=== PATIENT | male | born 1990 | race Caucasian/White ===

== ENCOUNTER → 2020-08-07 15:12 | Outpatient (BNVA) | payer SELFPAY | PROVIDERS: Visit Provider Physician Assistant ==

== ENCOUNTER 2021-03-20 15:04 | Emergency (ER) | payer OTHER, SELFPAY ==
--- NOTE | ~2021-03-20 | XR_ITS ---
EXAMINATION: XR ANKLE, LEFT XR FOOT, LEFT CLINICAL INFORMATION: Status post twist injury from [employer] COMPARISON: None TECHNIQUE: AP, lateral, and mortise views of the left ankle and AP, lateral, and oblique views of the left foot. FINDINGS: LEFT ANKLE: No fracture. Alignment is anatomic. Ankle mortise is symmetric. Joint spaces are maintained. No ankle joint effusion. Mild soft tissue swelling. Small enthesopathic spur is present at the Achilles tendon insertion on the calcaneus. LEFT FOOT: There is a small avulsion fracture at the lateral margin of the calcaneus at the anterior process as can be seen with avulsion fractures at the dorsal calcaneocuboid ligament or the extensor digitorum longus. Surrounding soft tissues are swollen. No additional avulsion fractures are identified. Alignment in the midfoot appears well-preserved at the tarsometatarsal joints. Bone mineralization is normal. XR/XR ankle LT min 3V IMPRESSION: Avulsion fracture at the lateral margin of the anterior process of the calcaneus, likely due to an avulsion fracture at the origin of the extensor digitorum brevis or the dorsal calcaneocuboid ligament. This can be seen in the setting of a midtarsal sprain mechanism injury. Soft tissue swelling. No additional fractures are identified.
--- NOTE | ~2021-03-20 | XR_ITS ---
EXAMINATION: XR ANKLE, LEFT XR FOOT, LEFT CLINICAL INFORMATION: Status post twist injury from [employer] COMPARISON: None TECHNIQUE: AP, lateral, and mortise views of the left ankle and AP, lateral, and oblique views of the left foot. FINDINGS: LEFT ANKLE: No fracture. Alignment is anatomic. Ankle mortise is symmetric. Joint spaces are maintained. No ankle joint effusion. Mild soft tissue swelling. Small enthesopathic spur is present at the Achilles tendon insertion on the calcaneus. LEFT FOOT: There is a small avulsion fracture at the lateral margin of the calcaneus at the anterior process as can be seen with avulsion fractures at the dorsal calcaneocuboid ligament or the extensor digitorum longus. Surrounding soft tissues are swollen. No additional avulsion fractures are identified. Alignment in the midfoot appears well-preserved at the tarsometatarsal joints. Bone mineralization is normal. XR/XR foot LT min 3V IMPRESSION: Avulsion fracture at the lateral margin of the anterior process of the calcaneus, likely due to an avulsion fracture at the origin of the extensor digitorum brevis or the dorsal calcaneocuboid ligament. This can be seen in the setting of a midtarsal sprain mechanism injury. Soft tissue swelling. No additional fractures are identified.
[2021-03-20 17:18] VITALS: BP 122/64; PULSE 73; RESP 16; TEMP 36.2; O2SAT 99; BMI 33.0
[2021-03-20] MEDS: Ibuprofen 800 MG TABLET PO (17:38)
--- NOTE | 2021-03-20 17:49 | ED.LOWEXIN ---
HPI - Extremity Injury (Lower) General Chief Complaint: Extremity Injury, Lower Stated Complaint: ankle inj Time Seen by Provider: 03/20/21 17:05 Source: patient Mode of arrival: ambulatory Limitations: no limitations History of Present Illness HPI Narrative: 30-year-old male presenting to the ED with complaints of left ankle / foot pain that started prior to arrival after he [place] and his ankle/ foot twisted. He denies head injury or loss of consciousness. Denies any numbness or tingling or any other injuries complaints or concerns at this time. He is able to bear weight although with pain. MD complaint: ankle injury and foot injury Onset (ago): minute(s) ( Prior to arrival) Injury: Left: ankle and foot Type of Injury: other ( twist injury unsure if inversion or eversion) Place: other ( indoor trampoline park) Severity: severe Severity scale (1-10): >10 Relieving factors: nothing Exacerbating factors: weight bearing Context: jumping Associated symptoms: snap/pop sensation, swelling and able to partially bear weight Other symptoms: none Related Data Previous Rx's Medication Instructions Recorded acetaminophen [Tylenol Extra 1,000 mg PO QID PRN #14 tab 03/20/21 Strength] ibuprofen 800 mg PO Q8H PRN #14 tab 03/20/21 oxycodone 5 mg PO BID PRN #14 tab 03/20/21 Allergies Allergy/AdvReac Type Severity Reaction Status Date / Time No Known Allergies Allergy Verified 03/20/21 17:38 [No Known Allergies*] Review of Systems Review of Systems: Constitutional : No changes in activity, No lethargy, No recent prior head injury, No agitation, No increased fussiness ENT/Mouth : No Ear Pain, No Nasal discharge/drainage Eyes: No Eye Pain, No Swelling, No Redness, No Foreign Body, No Vision Changes Cardiovascular : No Chest Pain, No SOB Respiratory : No Cough Gastrointestinal : No Nausea, No Vomiting, No abdominal Pain Genitourinary : No Dysuria, No Urinary Frequency, No Urinary Incontinence, No Urgency, No Flank Pain Musculoskeletal : + joint pain, No neck stiffness, No back pain/injury Skin : No lacerations Neuro : No unsteady gait, No Paresthesias, No Loss of Consciousness, No altered mental status, No Headache Yes all other systems are reviewed and are negative PMFSH Past Medical History Attestation statement: The following information was validated with the patient. Medical History No known health problems Social History Social History Advance Directives: No Advance Directives Information Provided: No Physical Exam Vital Signs: Vital Signs: Last Vital Signs Temp 97.1 F 03/20/21 17:18 Pulse 73 03/20/21 17:18 Resp 16 03/20/21 17:18 BP 122/64 03/20/21 17:18 Pulse Ox 99 03/20/21 17:18 Body Mass Index 33.0 vital signs have been reviewed as normal and appeared to be correct. Blood pressure normal. Heart rate normal. Respiration rate normal. Temperature normal. Oxygen saturation normal. Appearance: Alert. Oriented X3. No acute distress. Head: Normal external exam. Normocephalic. Atraumatic. Eyes: PERRLA. EOMI. Conjunctiva and sclera normal. Eyelids normal. ENT: Pharynx normal. Uvula midline. Moist mucous membranes. Neck: Normal inspection. Neck supple. FROM. CVS: Normal heart rate and rhythm. Heart sound normal. Pulses normal throughout. Respiratory: No respiratory distress. Painless inspiration. Back: Full range of motion noted. No rashes/lesion/induration/fluctuance or signs of infection noted. Skin: Skin warm and dry. Normal skin color. Normal skin turgor. No rashes/lesions/lacerations noted. Extremities: patient with tenderness to palpation to left ankle/foot at the dorsal aspect with moderate soft tissue swelling. No obvious deformity or ligamentous laxity noted on my exam. Reflex intact. Achilles tendon is intact. Negative Poe test. Patient has a limping gait due to pain. Otherwise all other Extremities exhibit normal range of motion and nontender. Neuro: Oriented X 3. No motor deficit. No sensory deficit. Reflexes normal. Normal steady gait. No focal neuro deficits noted. Vascular: + radial pulses/+ 2 distal pedal pulses/+2 dorsalis pedis b/l. Normal cap refill. No cyanosis noted to upper extremity nails and lower extremity toes nails. Course Course Course Narrative: 17:20pm 30-year-old male presenting to the ED with complaints of left ankle / foot pain that started prior to arrival after he was jumping at the [employer] park and his ankle/ foot twisted. Plan:X-ray of left foot / ankle. Provide 800 mg of Motrin then will re-evaluate. Reevaluation(s) Reevaluation #1: patient with left foot fracture I consulted with orthopedic ALEXANDRU Laureano and she recommended an ortho boot as long as the patient can bear weight if he cannot we will place him in crutches along with instructions follow-up in the next 1-2 weeks. Patient works for [employer] therefore will placed on light duty until cleared by Orthopedics. Patient understands agrees with this plan. Time: 18:15 Procedures Orthopedic Splinting/Casting Injury #1: Side: left Lower Extremity Injury Location: foot Lower Extremity Immobilizer: boot orthosis MDM - Extremity Injury (Lower) Medical Records Attestation: I reviewed the patient's medical records. Imaging Data left ankle/foot xray: Attestation: I personally reviewed and interpreted this imaging study as follows: Radiologist's impression: FINDINGS: LEFT ANKLE: No fracture. Alignment is anatomic. Ankle mortise is symmetric. Joint spaces are maintained. No ankle joint effusion. Mild soft tissue swelling. Small enthesopathic spur is present at the Achilles tendon insertion on the calcaneus. LEFT FOOT: There is a small avulsion fracture at the lateral margin of the calcaneus at the anterior process as can be seen with avulsion fractures at the dorsal calcaneocuboid ligament or the extensor digitorum longus. Surrounding soft tissues are swollen. No additional avulsion fractures are identified. Alignment in the midfoot appears well-preserved at the tarsometatarsal joints. Bone mineralization is normal. XR/XR ankle LT min 3V IMPRESSION: Avulsion fracture at the lateral margin of the anterior process of the calcaneus, likely due to an avulsion fracture at the origin of the extensor digitorum brevis or the dorsal calcaneocuboid ligament. This can be seen in the setting of a midtarsal sprain mechanism injury. Soft tissue swelling. No additional fractures are identified. Discharge Plan Discharge Clinical Impression: Foot fracture, left Patient Disposition: Home, Self-Care Instructions: Foot Fracture in Adults (ED) Prescriptions: New ibuprofen 800 mg tablet 800 mg PO Q8H PRN (Reason: pain) Qty: 14 RF: 0 acetaminophen [Tylenol Extra Strength] 500 mg tablet 1,000 mg PO QID PRN (Reason: fever or pain) Qty: 14 RF: 0 oxycodone 5 mg tablet 5 mg PO BID PRN (Reason: pain) Qty: 14 RF: 0 Referrals: Lakeshia Doe MD [Physician] - 04/03/21 ( call tomorrow to make a follow-up appointment within the next week or 2) Stand Alone Forms: Work/School Release Print Language: Malay
== END 2021-03-20 19:06 | disposition home or self-care (01) ==
PROVIDERS: Emergency Provider Emergency Medicine
DX: S92.902A Unspecified fracture of left foot, initial encounter for closed fracture (principal); X50.1XXA Overexertion from prolonged static or awkward postures, initial encounter; Y93.39 Activity, other involving climbing, rappelling and jumping off; Y92.838 Other recreation area as the place of occurrence of the external cause; Y99.9 Unspecified external cause status
CPT/HCPCS: 73610; 73630; 99283; 99284

== ENCOUNTER 2021-03-26 07:44 | Outpatient (REF) | payer OTHER, SELFPAY ==
--- NOTE | ~2021-03-26 | XR_ITS ---
EXAMINATION: XR FOOT, LEFT CLINICAL INFORMATION: Pain. COMPARISON: None TECHNIQUE: AP, lateral, and oblique views of the left foot. FINDINGS: The bones and soft tissues are normal. No fracture. Alignment is anatomic. Joint spaces are maintained. XR/XR foot LT min 3V IMPRESSION: Unremarkable left foot exam.
== END 2021-03-26 07:45 | disposition home or self-care (01) ==
LOC: HO.HOSX 07:44
PROVIDERS: Visit Provider Physician Assistant
DX: S92.002A Unspecified fracture of left calcaneus, initial encounter for closed fracture (principal)
CPT/HCPCS: 73630

== ENCOUNTER 2021-04-16 09:22 | Outpatient (REF) | payer OTHER, SELFPAY ==
--- NOTE | ~2021-04-16 | XR_ITS ---
EXAMINATION: XR FOOT, LEFT CLINICAL INFORMATION: Fracture left calcaneus. COMPARISON: None TECHNIQUE: AP, lateral, and oblique views of the left foot. FINDINGS: There is a small avulsion fracture along the lateral inferior lateral calcaneus seen only one view. No additional bony abnormality seen. There is normal articulation of the intertarsal and tarsometatarsal joints. The ankle mortise and subtalar joints are normal. A moderate-sized retrocalcaneal and a small calcaneal enthesophytes is seen. XR/XR foot LT min 3V IMPRESSION: Small avulsion fracture along the lateral inferior calcaneus. Small retrocalcaneal and calcaneal heel enthesophytes.
== END 2021-04-16 09:23 | disposition home or self-care (01) ==
LOC: HO.XRAY 09:22
PROVIDERS: Visit Provider Physician Assistant
DX: S92.002A Unspecified fracture of left calcaneus, initial encounter for closed fracture (principal)
CPT/HCPCS: 73630

== ENCOUNTER 2023-03-29 07:30 | Emergency (ER) | payer OTHER, SELFPAY ==
--- NOTE | ~2023-03-29 | XR_ITS ---
EXAMINATION: XR LUMBOSACRAL SPINE CLINICAL INFORMATION: Right paraspinal pain. COMPARISON: CT abdomen/pelvis dated 03/10/2015. TECHNIQUE: Three views of the lumbosacral spine. FINDINGS: The lumbar lordosis is maintained. Normal vertebral body alignment. No acute fracture or subluxation. No loss of vertebral body or intervertebral disc height. Unremarkable facets. No lytic or blastic osseous lesion. No abnormal soft tissue calcification. XR/XR lumbar spine 2-3V IMPRESSION: Unremarkable examination.
[2023-03-29 07:33] VITALS: BP 125/87; PULSE 80; RESP 16; TEMP 36.4; O2SAT 97; BMI 33.4
--- NOTE | 2023-03-29 08:17 | ED_ITS ---
HPI - Back Pain/Injury General Chief Complaint: Back Pain/Injury Stated Complaint: back pain , work injury Time Seen by Provider: 03/29/23 07:51 Source: patient and family () Mode of arrival: ambulatory History of Present Illness HPI Narrative: 32-year-old male without significant past medical history presents with significant lower back pain, reports he was injured on 03/22 at work and has continued to work. 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 He denies any bowel or bladder issues but pain is worse with sitting, he is uncomfortable while laying down and sleeping but denies any numbness/tingling to either lower extremity and denies any weakness in either lower extremity. Related Data Previous Rx's Medication Instructions Recorded acetaminophen 500 mg tablet 1,000 mg PO QID PRN fever or pain 03/20/21 (Tylenol Extra Strength) #14 tabs ibuprofen 800 mg tablet 800 mg PO Q8H PRN pain #14 tabs 03/20/21 oxycodone 5 mg tablet 5 mg PO BID PRN pain #14 tabs 03/20/21 cyclobenzaprine 10 mg tablet 10 mg PO BEDTIME PRN muscle spasm 03/29/23 #5 tabs ketorolac 10 mg tablet 10 mg PO Q6H PRN pain 5 days #20 03/29/23 tabs Allergies Allergy/AdvReac Type Severity Reaction Status Date / Time No Known Allergies Allergy Verified 03/29/23 07:32 [No Known Allergies*] Review of Systems Review of Systems: Pertinent positives and negatives as stated in HPI [facility] Past Medical History Medical History No known health problems Surgical History Hx of appendectomy Social History Social History Alcohol intake: never Smoked in Last 30 Days: No Use of substances other than those prescribed or required for medical reasons: No Advance Directives: No Advance Directives Information Provided: No Current occupational status: employed 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 GENERAL: Well developed, well nourished, in no acute distress. HEAD: Normocephalic/atraumatic EYES: PERRLA, EOMI EARS: Ext canals without abnormality LUNGS: Normal breath sounds. No adventitious sounds or accessory muscle use. SpO2<97> CARDIOVASCULAR: Regular rate and rhythm without noted murmurs ABDOMEN: Soft, non-tender, non-distended with bowel sounds. BACK: No midline vertebral tenderness on palpation or step-offs noted, significant tenderness to palpation to right paraspinal at approximate L4 MUSCULOSKELETAL: No tenderness, deformities, or effusions noted on gross inspec tion. EXTREMITIES: No cyanosis, clubbing or edema. SKIN: Inspection of the skin reveals no rashes NEUROLOGIC: Alert and oriented x 4. Strength and sensation to light touch were grossly intact x 4. Medications Administered Discontinued Medications Generic Name Dose Route Start Last Admin Trade Name Freq PRN Reason Stop Dose Admin Acetaminophen 975 mg 03/29/23 08:16 03/29/23 08:45 Acetaminophen 325 Mg Tablet PO 03/29/23 08:17 975 mg ONCE ONE Administration Cyclobenzaprine HCl 10 mg 03/29/23 08:16 03/29/23 08:45 Cyclobenzaprine Hcl 10 Mg Tablet PO 03/29/23 08:17 10 mg ONCE ONE Administration Ketorolac Tromethamine 15 mg 03/29/23 08:16 03/29/23 08:45 Ketorolac Tromethamine 15 Mg/Ml Vial IM 03/29/23 08:17 15 mg ONCE ONE Administration Lidocaine 1 patch 03/29/23 08:16 03/29/23 08:44 Lidocaine 4 % Patch Adh..Patch TRANSDERMA 03/29/23 08:17 1 patch ONCE ONE Administration Protocol Medical Decision Making Medical Decision Making MDM Narrative: 32-year-old male with history and clinical presentation, DDX: Muscle strain, muscle spasm, less likely thought to be fracture/gross herniation. Combination analgesics/anti spasmodic/lidocaine patch, XR lumbar spine. I reviewed imaging studies which are negative for any evidence of acute fracture. Differential Diagnosis Differential Diagnoses: The differential diagnosis associated with the presentation includes Please see the discussion above Admission/Observation Consideration of admission/observation: Escalation of care including admission/observation considered Radiology Impression Radiologist Impression: No fracture, otherwise my interpretation is in agreement with radiology's impression. Discharge Plan Discharge Clinical Impression: Back strain, Muscle spasm Patient Disposition: Home, Self-Care Instructions: Muscle Strain (ED), Muscle Spasm (ED), Back Pain (ED), Lower Back Exercises (ED) Additional Instructions: 1. Tylenol 1000 mg, orally, every 6 hours as needed for pain control. Do not exceed 4000 mg within 24 hours. 2. Lidocaine patch, apply to area of maximal tenderness as directed on the outside packaging. 3. Please report this incident to your employer your as well as following up with [facility]. X-ray negative for any acute fracture or other bony abnormality. Return to the ER for any worsening symptoms. Prescriptions: New ketorolac 10 mg tablet 10 mg PO Q6H PRN (Reason: pain) 5 Days Qty: 20 0RF Rx Instructions: Patient received Toradol here in the emergency room. cyclobenzaprine 10 mg tablet 10 mg PO BEDTIME PRN (Reason: muscle spasm) Qty: 5 0RF No Action ibuprofen 800 mg tablet 800 mg PO Q8H PRN (Reason: pain) Qty: 14 0RF acetaminophen [Tylenol Extra Strength] 500 mg tablet 1,000 mg PO QID PRN (Reason: fever or pain) Qty: 14 0RF oxycodone 5 mg tablet 5 mg PO BID PRN (Reason: pain) Qty: 14 0RF Referrals: [facility] [Provider Group] Stand Alone Forms: Work/School Release
[2023-03-29] MEDS: Lidocaine 4 % Patch ADH..PATCH 1 PATCH TRANSDERMA (08:44)
[2023-03-29] MEDS: Cyclobenzaprine HCl 10 MG TABLET PO (08:45)
[2023-03-29] MEDS: Ketorolac Tromethamine 15 MG/ML VIAL IM (08:45)
[2023-03-29] MEDS: Acetaminophen 325 MG TABLET 975 MG PO (08:45)
--- NOTE | 2023-03-29 08:51 | PC.NURSE ---
pt a&ox3, respirations even and unlabored. pt reports pain 10/10 on lower back that is radiating to the right leg d/t falling out of his work truck. pt reports inability to sit down without extreme pain. no bruising or inflammation noted upon assessment.
== END 2023-03-29 09:23 | disposition home or self-care (01) ==
PROVIDERS: Emergency Provider Student in an Organized Health Care Education/Training Program
DX: S39.012A Strain of muscle, fascia and tendon of lower back, initial encounter (principal); W17.89XA Other fall from one level to another, initial encounter; M62.830 Muscle spasm of back; Y93.79 Activity, other specified sports and athletics; Y92.9 Unspecified place or not applicable; Y99.0 Civilian activity done for income or pay
CPT/HCPCS: 72100; 96372; 99284; J1885

== ENCOUNTER 2024-03-15 18:54 | Emergency (ER) | payer OTHER, SELFPAY ==
--- NOTE | ~2024-03-15 | CT_ITS ---
CT CERVICAL SPINE WITHOUT CONTRAST CLINICAL HISTORY:Neck pain, injury COMPARISON: None TECHNIQUE: Axial CT imaging of the cervical spine was acquired without intravenous contrast. Coronal and sagittal reformats were also reviewed. All CT exams at this location are performed using dose optimization techniques as appropriate to a performed exam including at least one of the following: * Automated exposure control * Adjustment of the mA and/or kV according to patient size (this includes techniques or standardized protocols for targeted exams where dose is matched to indication / reason for exam; i/e/ extremities or head) * Use of iterative reconstructive technique RESULTS: There is no evidence of acute cervical spine fracture. Vertebral body height and alignment is well maintained. No pre- or paravertebral soft tissue abnormality is identified. Disc spaces and facet joints are well maintained. Minimal endplate osteophyte formation is seen from the C4-C7. Limited assessment of the lung apices is unremarkable. CT/CT cervical spine wo IV con IMPRESSION: No evidence of acute cervical spine fracture or traumatic subluxation. Mild degenerative changes as described above.
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
[2024-03-15 19:05] VITALS: BP 135/73; PULSE 85; RESP 16; TEMP 36.7; O2SAT 97; BMI 33.2
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
[2024-03-15] MEDS: Cyclobenzaprine HCl 5 MG TABLET PO (20:30)
[2024-03-15] MEDS: Ketorolac Tromethamine 15 MG/ML VIAL IM (20:31)
[2024-03-15 20:33] VITALS: BP 106/60; PULSE 96; RESP 16; TEMP 36.3; O2SAT 96
[2024-03-15 20:38] VITALS: BP 106/60; PULSE 96; RESP 16; TEMP 36.3; O2SAT 96
== END 2024-03-15 20:38 | disposition home or self-care (01) ==
PROVIDERS: Emergency Provider Internal Medicine
DX: S13.4XXA Sprain of ligaments of cervical spine, initial encounter (principal); S49.92XA Unspecified injury of left shoulder and upper arm, initial encounter; M54.2 Cervicalgia; M25.512 Pain in left shoulder; V43.52XA Car driver injured in collision with other type car in traffic accident, initial encounter; Y93.9 Activity, unspecified; Y92.410 Unspecified street and highway as the place of occurrence of the external cause; Y99.8 Other external cause status
CPT/HCPCS: 72125; 73030; 96372; 99283; 99284; J1885

== ENCOUNTER 2024-08-04 19:29 | Emergency (ER) | payer OTHER, SELFPAY ==
--- NOTE | ~2024-08-04 | XR_ITS ---
EXAMINATION: XR FOOT, RIGHT CLINICAL INFORMATION: pain and swelling after ankle injury COMPARISON: None available. TECHNIQUE: AP, lateral, and oblique views of the right foot. FINDINGS: Small 2 mm un-corticated osseous fragment located lateral to the talar neck. No radiopaque foreign bodies. Joint spaces are preserved. XR/XR foot RT min 3V IMPRESSION: Questionable small avulsion fracture arising from the lateral aspect of the talar neck Electronically signed by: Deni Goff DO 08/04/2024 10:46 PM EST
--- NOTE | ~2024-08-04 | XR_ITS ---
EXAMINATION: XR ANKLE, RIGHT CLINICAL INFORMATION: pain and swelling after inversion COMPARISON: None available. TECHNIQUE: AP, lateral, and mortise views of the right ankle. FINDINGS: No fracture. Alignment is anatomic. No erosions. Joint spaces are maintained. Soft tissues are normal. XR/XR ankle RT min 3V IMPRESSION: Normal right ankle. Electronically signed by: Deni Goff DO 08/04/2024 10:43 PM EST
[2024-08-04 19:30] VITALS: BP 135/63; PULSE 76; RESP 18; TEMP 37; O2SAT 97; BMI 33.5
--- NOTE | 2024-08-04 19:30 | ED.GENADULT ---
HPI - General Adult General Chief complaint: Extremity Injury, Lower Stated complaint: RT foot injury- work related Time Seen by Provider: 08/04/24 21:13 Source: patient Limitations: no limitations History of Present Illness ED Provider: Denise Robbins PA-C HPI narrative: 33-year-old male presents with right foot and ankle pain. Patient states he was at work, he missed a step, he rolled the foot and ankle laterally. No swelling, pain most prominent over lateral aspect of foot, with radiation up to the lateral aspect of the ankle. Related Data Previous Rx's ?Medication ?Instructions ?Recorded acetaminophen 500 mg tablet 1,000 mg (2 x 500 mg) PO QID PRN 03/20/21 (Tylenol Extra Strength) fever or pain #14 tabs ibuprofen 800 mg tablet 800 mg PO Q8H PRN pain #14 tabs 03/20/21 oxycodone 5 mg tablet 5 mg PO BID PRN pain #14 tabs 03/20/21 cyclobenzaprine 10 mg tablet 10 mg PO BEDTIME PRN muscle spasm 03/29/23 #5 tabs ketorolac 10 mg tablet 10 mg PO Q6H PRN pain 5 days #20 03/29/23 tabs cyclobenzaprine 5 mg tablet 5 mg PO TID PRN pain 7 days #21 03/15/24 tabs naproxen 500 mg tablet 500 mg PO BID 7 days #14 tabs 03/15/24 Allergies Allergy/AdvReac Type Severity Reaction Status Date / Time No Known Allergies Allergy Verified 08/04/24 19:37 [No Known Allergies*] Review of Systems Review of Systems: Yes all other systems are reviewed and are negative Constitutional: Constitutional: Denies fatigue and Denies fever(s) Musculoskeletal: Musculoskeletal: Reports arthralgias and Denies joint swelling Endocrine: Endocrine: Denies fatigue PMFSH Past Medical History Attestation statement: The following information was validated with the patient. Medical History No known health problems Surgical History Hx of appendectomy Social History Social History Alcohol intake: never Smoked in Last 30 Days: No Use of substances other than those prescribed or required for medical reasons: No Advance Directives: No Advance Directives Information Provided: Yes Current occupational status: employed Current occupation: [employer] - Left Handed Physical Exam ED Vital Signs: Vital Signs - 24 hr 08/04/24 19:30 08/04/24 22:24 Temperature 98.6 F 97.7 F Pulse Rate 76 83 Respiratory Rate 18 16 Blood Pressure 135/63 119/77 Pulse Oximetry 97 97 Oxygen Delivery Method Room Air Room Air BMI result Body Mass Index 33.5 Const Other: Alert Orientation/consciousness: patient oriented x3 Skin Other: Warm dry no rash Neuro General: patient oriented x3, no focal motor deficits and CN's II-XI intact bilaterally Extrem Other: Patient able to flex and extend from the right ankle, pain most prominent over lateral aspect of the foot, no overlying ecchymosis or swelling, Psych Other: Calm cooperative Course Course Course Narrative: This is a rapid medical exam performed by Aide Murphy NP: Additional HPI, ROS, PE not included below will be deferred to primary provider. Patient is a 33-year-old male presenting with complaint of right ankle and foot pain. 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 Toe numbness since injury around 4pm. Plan: xrays Medical Decision Making Medical Decision Making MDM Narrative: 33-year-old male presents with right foot and ankle pain. Patient states he was at work, he missed a step, he rolled the foot and ankle laterally. No swelling, pain most prominent over lateral aspect of foot, with radiation up to the lateral aspect of the ankle. No relevant chronic issues History: Per patient I have considered the following differential diagnoses: Fracture, dislocation, sprain Plan: X-rays of ankle and foot were obtained from triage, there are no injuries beyond a sprain. We will send with the boot, crutches and RICE measures I have independently reviewed the following tests: X-ray right ankle: no fracture no dislocation X-ray right foot: No fracture no dislocation no fracture no dislocation Discharge Plan Discharge Clinical Impression: Right foot sprain Patient Disposition: Home, Self-Care Instructions: Foot Sprain (ED), Walking Boot (ED), R.I.C.E. Treatment (ED) Additional Instructions: X-rays revealed no fracture of the foot or ankle, you have a sprain. See home care instructions. Follow up with your primary care provider as needed. Use the boot and crutches as needed, bear weight as tolerated. Prescriptions: No Action ibuprofen 800 mg tablet 800 mg PO Q8H PRN (Reason: pain) Qty: 14 0RF acetaminophen [Tylenol Extra Strength] 500 mg tablet 1,000 mg PO QID PRN (Reason: fever or pain) Qty: 14 0RF oxycodone 5 mg tablet 5 mg PO BID PRN (Reason: pain) Qty: 14 0RF cyclobenzaprine 5 mg tablet 5 mg PO TID PRN (Reason: pain) 7 Days Qty: 21 0RF naproxen 500 mg tablet 500 mg PO BID 7 Days Qty: 14 0RF ketorolac 10 mg tablet 10 mg PO Q6H PRN (Reason: pain) 5 Days Qty: 20 0RF Rx Instructions: Patient received Toradol here in the emergency room. cyclobenzaprine 10 mg tablet 10 mg PO BEDTIME PRN (Reason: muscle spasm) Qty: 5 0RF Stand Alone Forms: Work/School Release Print Language: Andorran
--- NOTE | 2024-08-04 21:19 | PC.NURSE ---
pt from waiting room, a&ox4, vss. pt reports stepping up into truck at work, catching his foot and twisting his r ankle. minimal swelling noted in r ankle. pt reports pain on lateral and anterior ankle. pedal pulses palpated bilaterally 1+, neuro exam negative for impairments. pt given new ice pack.
[2024-08-04 22:24] VITALS: BP 119/77; PULSE 83; RESP 16; TEMP 36.5; O2SAT 97
[2024-08-04] MEDS: Acetaminophen 325 MG TABLET 975 MG PO (22:55)
--- NOTE | 2024-08-04 22:55 | PC.NURSE ---
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
[2024-08-04 22:56] VITALS: BP 119/77; PULSE 83; RESP 16; TEMP 36.5; O2SAT 97
== END 2024-08-04 22:57 | disposition home or self-care (01) ==
PROVIDERS: Emergency Provider Emergency Medicine
DX: S93.601A Unspecified sprain of right foot, initial encounter (principal); W10.8XXA Fall (on) (from) other stairs and steps, initial encounter; Y93.89 Activity, other specified; Y92.9 Unspecified place or not applicable; Y99.0 Civilian activity done for income or pay
CPT/HCPCS: 73610; 73630; 99283; 99284